=== PATIENT | male | born 1960 | race Caucasian/White ===

== ENCOUNTER 2020-01-29 13:07 | Inpatient (IN) | payer SELFPAY ==
[2020-01-29] VITALS (197 sets, daily range): BP systolic 149–187; BP diastolic 95–106; PULSE 62–87; TEMP 97.7–98.5; O2SAT 89–99
[~2020-01-29] VITALS: Ht 177.8 cm; Wt 88.3 kg
[2020-01-29 13:56] LABS: BASO % 0.3 % (0.0-2.0); EOS # 0.1 (0.0-0.7); EOS % 1.3 % (0-4.0); GRAN # 4.2 (1.4-6.5); GRAN % 65.1 % (42.2-75.2); HEMATOCRIT 43.5 % (42.0-52.0); HEMOGLOBIN 15.6 g/dl (13.5-18.0); LYMPH # 1.4 (1.2-3.4); MEAN CELL VOLUME 99 fl (80.0-100.0); MEAN CORPUSCULAR HEMOGLOBIN 36 pg (27.0-31.0); MEAN CORPUSCULAR HGB CONC 36 g/dl (33.0-37.0); MEAN PLATELET VOLUME 9.6 fl (7.4-10.4); MONO # 0.7 (0.1-0.6); MONO % 10.8 % (1.7-9.3); PLATELET COUNT 185 K/mm3 (130-400); RED BLOOD COUNT 4.39 M/mm3 (4.20-5.60); REDCELL DISTRIBUTION WIDTH-CV 12.2 % (11.5-14.5)
[2020-01-29 14:13] LABS: BILIRUBIN,TOTAL 1.2 mg/dL (0.0-1.0); CALCIUM 9.2 mg/dL (8.4-10.2); CREATININE, serum 0.81 (0.66-1.25); POTASSIUM 3.8 mmol/L (3.4-5.0); TOTAL PROTEIN 7.4 gm/dL (6.4-8.2)
[2020-01-29 14:25] LABS: TROPONIN-I 0.027 ng/mL (0.000-0.035)
[2020-01-29 15:13] LABS: COLLECTION METHOD CLEAN CATCH
[2020-01-29 15:30] LABS: PH 7 (5-8); SQUAMOUS EPITHELIAL None Seen /hpf; URINE APPEARANCE Clear; URINE BACTERIA None Seen /hpf; URINE BILIRUBIN Negative (NEGATIVE); URINE BLOOD Negative (NEGATIVE); URINE COLOR Yellow; URINE GLUCOSE Negative (NEGATIVE); URINE KETONE Negative (NEGATIVE); URINE LEUKOCYTE ESTERASE Negative (NEGATIVE); URINE NITRATE Negative (NEGATIVE); URINE PROTEIN(semi-quant) Negative (NEGATIVE); URINE RBC 0-2 /hpf; URINE UROBILINOGEN Negative (NEGATIVE)
--- NOTE | 2020-01-29 19:15 | NUR ---
RECEIVED REPORT FROM MATEUSZ LUNDBERG. PT LYING IN BED TALKING TO SON AT BEDSIDE. CALL LIGHT WITHIN REACH. URINAL WITHIN REACH.
--- NOTE | 2020-01-29 21:45 | NUR ---
RN HEARD A THUD THEY WENT TO GRAB PT'S MEDS. UPON RETURNING TO ROOM PT FOUND ON KNEES ON FLOOR. PT STATES "I WAS TRYING TO GO TO THE RESTROOM, I NEED TO PEE." URINAL AND CALL LIGHT WERE BOTH IN REACH. RN ASSISTED PT BACK TO BED. FRANK CIGARETTE MAKING MACHINE CATCHER TO BEDSIDE AT THIS TIME FOR ASSESSMENT AND NOTED BLEEDING HEMATOMA UPON RT EYEBRWON ABOUT A HALF INCH LONG, PHYSICIAN STATES DOES NOT NEED ANY OTHER INTERVENTION BESIDES PRESSURE TO STOP THE BLEEDING. RN REMINDS PT THAT HE HAS TO CALL BEFORE GETTING OOB BECAUSE OF ALL OF HIS LINES AND BECAUSE OF HIS CVA TODAY. PT STATES "I THOUGHT I COULD JUST DO IT MYSELF." RN SHOWS PT THAT HIS URINAL AND CALL LIGHT WERE BOTH LYING WITHIN REACH ON BED. PT STATES "OH NOW YOU TELL ME." RADIOLOGY NOTIFIED OF CT HEAD ORDER. PT NOTIFIED OF POC. NO NEURO DEFICITS NOTED. BRUISING TO LEFT KNEE NOTED. WILL MONITOR CLOSELY. NOTIFIED GENERAL ADJUSTER AND REQUEST OF SITTER AT THIS TIME.
[2020-01-30] VITALS (389 sets, daily range): BP systolic 153–203; BP diastolic 69–114; PULSE 54–86; TEMP 97.8–99.2; O2SAT 91–100
--- NOTE | 2020-01-30 06:36 | NUR ---
SPOKE WITH PT AND WENT OVER EDUCATION AGAIN ABOUT NOT GETTING OOB UNLESS HE CALLS FOR HELP WITH CALL LIGHT SYSTEM AND TO WAIT FOR SOMEONE TO ARRIVE. PT VERBALIZED UNDERSTANDING. NO NEURO DEFICITS NOTED. NOTED HEMATOMA FROM FALL ABOVE RT EYEBROW HAS DECREASED THROUGHOUT THE NIGHT. CALL LIGHT AND URINAL WITHIN REACH. BA PLACED. SITTER GONE AT THIS TIME. SPOKE WITH SHWETA MARIE, REQUESTING SON NIXON TO BE UPDATED ON FALL AND PT'S CURRENT STATUS. ATTEMPTED TO CALL NIXON AT THIS TIME BUT UNSUCCESSFUL AND VOICEMAIL WAS NOT SET UP. VSS.
[2020-01-30 06:40] LABS: ALBUMIN 3.5 gm/dL (3.5-5.0); BILIRUBIN,TOTAL 0.8 mg/dL (0.0-1.0); CALCIUM 8.6 mg/dL (8.4-10.2); CHOLESTEROL RISK RATIO 3.3; CREATININE, serum 0.74 (0.66-1.25); POTASSIUM 3.5 mmol/L (3.4-5.0); TOTAL PROTEIN 6.6 gm/dL (6.4-8.2)
[2020-01-30 06:43] LABS: BASO % 0.5 % (0.0-2.0); EOS # 0.1 (0.0-0.7); EOS % 1.2 % (0-4.0); GRAN # 3.6 (1.4-6.5); GRAN % 59.7 % (42.2-75.2); HEMATOCRIT 40.5 % (42.0-52.0); HEMOGLOBIN 14.2 g/dl (13.5-18.0); LYMPH # 1.7 (1.2-3.4); LYMPH % 27.7 % (20.0-51.0); MEAN CELL VOLUME 101 fl (80.0-100.0); MEAN CORPUSCULAR HEMOGLOBIN 35 pg (27.0-31.0); MEAN CORPUSCULAR HGB CONC 35 g/dl (33.0-37.0); MEAN PLATELET VOLUME 10.4 fl (7.4-10.4); MONO # 0.6 (0.1-0.6); MONO % 10.2 % (1.7-9.3); PLATELET COUNT 169 K/mm3 (130-400); RED BLOOD COUNT 4.02 M/mm3 (4.20-5.60); REDCELL DISTRIBUTION WIDTH-CV 12.4 % (11.5-14.5)
[2020-01-30 06:55] LABS: PROTHROMBIN TIME 11.5 SECONDS (9.7-12.8)
--- NOTE | 2020-01-30 07:15 | NUR ---
Bedside report received from Yolanda CHILD and care transfered.
--- NOTE | 2020-01-30 07:47 | NUR ---
ATTEMPTED TO NOTIFY SON NIXON AGAIN, NO ANSWER.
--- NOTE | 2020-01-30 09:15 | NUR ---
Dr Dominguez in to see pt at this time.
--- NOTE | 2020-01-30 09:50 | NUR ---
SW's met with the patient to discuss discharge plan. The patient lives alone in [place]. He states that his son, Robert (ph#[phone]), lives close by. He reports independence with ADLs and does not have any DME. The patient does not have a PCP. He states that his son was thinking about getting him set up with Dr. Shane in [place]. The patient was not on any medications prior to hospitalization and has not needed to utilize any pharmacy. He states that he will probably start using [facility] or [facility]. The patient is self pay. Joann, with [employer], has been notified and plans to contact the patient this afternoon to complete a Medicaid application. The patient does not have advanced directives and was not interested in completing one at this time. He has two children: Robert Cummings and Radha. SW's then addressed the patient's alcohol use. The patient has been drinking a 12 pack of beer and two bourbon drinks a day. The patient reports that he is not really interested in quitting drinking at this time. He states that he may cut back some. He was not interested in any outpatient/inpatient alcohol treatment. The patient's son, Robert, then arrived to the hospital. GENNA followed up with the patient and Robert. Robert reports that they would be interested in completing a DPOA-HC. The patient reports that he would like to designate his son, Robert, to be his DPOA-HC. GENNA and Linsey VAIL, witnessed the patient's signature. The patient was provided with the original and some copies. GENNA placed a copy in the patient's chart. Robert confirmed that they are thinking about getting the patient set up with the PCP, Dr. Shane. He states that they would like to wait until later to set up an appointment with him. Robert states that his works at the [employer] and can make the appointment, if needed. The patient had two strokes. PT/OT/ST have been ordered. SW to continue to follow.
--- NOTE | 2020-01-30 13:25 | NUR ---
Dr Fairbanks in to see pt at this time
--- NOTE | 2020-01-30 19:15 | NUR ---
Report given to Yolanda CHILD and care transfered.
--- NOTE | 2020-01-30 19:50 | NUR ---
REPORT GIVEN TO ANDREINA. TRASNFERRING PT TO 344, ALL PERSONAL BELONGINGS SENT WITH PT.
[2020-01-31] VITALS (12 sets, daily range): BP systolic 150–200; BP diastolic 77–118; PULSE 55–95; TEMP 97.6–98.6
--- NOTE | 2020-01-31 03:32 | NUR ---
Patient arrived from ICU via wheelchair. PRN Labetalol given before arrival per ICU nurse. Patient noted to have a hard time finding words when speaking with this nurse, and talks quickly. No PRN blood pressure medication needed so far this shift. Hand spike driver equal. No noted weakness. Patient has an unsteady gait when up to use the restroom. Small laceration noted to right eyebrow. Noted to be scabbing over. Bruise to left knee noted. Blood glucose levels within normal limits. Patient is alert and oriented. Continues on alcohol detox protocol. Has not scored over a 1 so far this shift. Patient has rested well so far. Patient is a high fall risk and fall precautions are in place. Patient denies any needs. Will continue to monitor.
--- NOTE | 2020-01-31 08:00 | NUR ---
PATIENT IS ORIENTED X3 HOWEVER, HAS A KNOWN ALCOHOL ABUSE ISSUE AND IS IMPULSIVE AT TIMES. PATIENT ASSITED WITH 1-2 ASSIST TO BEDSIDE CHAIR. PATIENT'S GAIT IS VERY UNSTEADY. HIGH RISK FOR FALLS. SMALL, SCABBED LACERATION ABOVE RIGHT EYE FROM FALL IS HEALING WELL. NEURO CHECKS WNL AND PATIENT IS NOT REQUIRING ATIVAN FROM THE DETOX PROTOCOL AT THIS TIME. PATIENT DOES HAVE ELEVATED B/P IN THE 180-190'S SYSTOLIC. ORDERS TO GIVE PRN ANTIHYPERTENSIVE IF OVER 210 SYSTOLIC. PATIENT DENIES FIELDS OR DIZZINESS. NO C/O N/V. RIGHT AC IV TO INT. PT/OT/ST CONSULTED. HEAD TO TOE ASSESSMENT COMPLETE. MECH SOFT BREAKFAST AT BEDSIDE, PATIENT TOLERATED WELL. PATIENT DID CHOKE ON WATER WHEN TAKING AM MEDS. PATIENT COUGHED UP ALL HIS WATER ONTO HIMSELF AND TOOK A FEW MINUTES TO RECOVER. PATIENT DID GET PILLS DOWN. PATIENT MAY REQUIRED MODIFIED/THICKENED LIQUIDS POST CVA. AWAITING ST EVAL
--- NOTE | 2020-01-31 11:00 | NUR ---
PATIENT AMBULATING IN HALLWAY WITH PHYSICAL THERAPY, 2 ASSIST WITH WALKER. GAIT UNSTEADY
--- NOTE | 2020-01-31 11:35 | NUR ---
GENNA met with the patient and the patient's son, Robert to discuss PT/OT recommendations of post acute rehab. GENNA provided Medicare.gov's list of post acute rehab facilities in the [place] area. They chose [facility] and did not want to choose a second choice. GENNA faxed referral. Awaiting response. GENNA collaborated with Joann Light with finance to get the patient to sign the releases of information. Will continue to monitor.
--- NOTE | 2020-01-31 12:20 | NUR ---
AT BEDSIDE DISCUSSING THE PLAN OF CARE WITH THE PATIENT AND SON.
--- NOTE | 2020-01-31 20:00 | NUR ---
Pt up in chair at bedside. Has used the urinal for 450cc of yellow urine. Is alert, oriented to self, not sure where he is. Lungs sound coarse. Takes HS meds one at a time, no choking. Assisted to bed, unsteady after first few steps. Attends on for loose stools. Bed alarm on.
[2020-02-01] VITALS (11 sets, daily range): BP systolic 143–185; BP diastolic 65–109; PULSE 60–90; TEMP 97.4–98.5
--- NOTE | 2020-02-01 02:15 | NUR ---
Medicated with ATivan 0.5mg IVP for detox of 4 on scale. Pt getting interrupted sleep due to detox protocol.
--- NOTE | 2020-02-01 08:00 | NUR ---
PATIENT IS ORIENTED X2 BUT DISPLAYS OCCATIONAL CONFUSION/FORGETFULNESS. PATIENT HAS HX OF ALCOHOL ABUSE AND IS ON THE DETOX PROTOCOL, NO ATIVAN REQUIRED AT THIS TIME. NEURO CHECKS WNL. NOTED ELEVATED B/P IN THE 170'S SYSTOLIC WITH ALL OTHER VSS. TELE INPLACE. PATIENT IS HAVING ISSUES WITH AMBULATION AND SWALLOWING WATER POST CVA. PATIENT REQUIRES 1-2 ASSIST WITH WALKER AND IS UNSTEADY. PATIENT NEEDS VERBAL QUES DURING ADL'S. PATIENT ALSO NEEDS REMINDED EACH TIME TO TAKE SMALL SIPS AND CHIN DOWN WHEN SWALLOWING WATER. PATIENT WILL OCCATIONALLY CHOKE. ST AGREED AND WANTS TO TRY PATIENT ON THICKENED LIQUIDS. PATIENT TOLERATING [facility] SOFT DIET. NO C/O N/V. AM BS WAS 109. HEAD TO TOE ASSESSMENT COMPLETE AND AM MEDS GIVEN WITH SIPS. PATIENT NOW SITTING UP IN BEDSIDE CHAIR WITH ALARM ON AND CALL LIGHT IN REACH.
[2020-02-01 08:21] LABS: BASO # 0.1 (0.0-0.2); BASO % 0.7 % (0.0-2.0); EOS # 0.1 (0.0-0.7); EOS % 1.6 % (0-4.0); GRAN # 4.2 (1.4-6.5); GRAN % 61.6 % (42.2-75.2); HEMATOCRIT 48.4 % (42.0-52.0); LYMPH # 1.6 (1.2-3.4); LYMPH % 23.6 % (20.0-51.0); MEAN CELL VOLUME 100 fl (80.0-100.0); MEAN CORPUSCULAR HEMOGLOBIN 35 pg (27.0-31.0); MEAN CORPUSCULAR HGB CONC 35 g/dl (33.0-37.0); MEAN PLATELET VOLUME 10.2 fl (7.4-10.4); MONO # 0.8 (0.1-0.6); MONO % 12.2 % (1.7-9.3); PLATELET COUNT 203 K/mm3 (130-400); RED BLOOD COUNT 4.82 M/mm3 (4.20-5.60); REDCELL DISTRIBUTION WIDTH-CV 12.1 % (11.5-14.5)
[2020-02-01 08:28] LABS: HEMOGLOBIN 16.9 g/dl (13.5-18.0)
[2020-02-01 08:49] LABS: CALCIUM 9.5 mg/dL (8.4-10.2); CREATININE, serum 0.98 (0.66-1.25); POTASSIUM 4.1 mmol/L (3.4-5.0)
--- NOTE | 2020-02-01 09:37 | NUR ---
GENNA attempted to contact Natasha at [facility], left message. GENNA contacted the patient's son/DPOA-HC to discuss a second choice. He directed GENNA to his , Martha. GENNA contacted Martha about second choice. The second choice is [facility]. GENNA contacted [facility] about the referral. Martha reports they will take the patient home if they cannot find placement. Will continue to monitor.
--- NOTE | 2020-02-01 13:50 | NUR ---
Patient sitting up in recliner
--- NOTE | 2020-02-01 16:11 | NUR ---
Patient up to restroom, x 1 assist with walker. No further needs at this time.
--- NOTE | 2020-02-01 18:17 | NUR ---
Patient has done well this afternoon. Minimal needs. Has been up to restroom with walker and x1 assist. No further needs at this time. Will report off to night club manager.
--- NOTE | 2020-02-01 20:00 | NUR ---
PT IN BED, USES CALL LIGHT APPROPRIATELY BEFORE GETTING UP TO THE BATHROOM. GAIT SLIGHT UNSTEADY, USES WALKER. LESS STOOLS TODAY, VOIDING WELL. IS ALERT, ORIENTED X2. UNSURE OF DATE AND PLACE. HAS SL TO RIGHT AC, INTACT. REMAINS ON DETOX PROTOCOL, SCORING 1-3. NEW B/P MED STARTED TONIGHT. TAKES MEDS CRUSHED IN APPLESAUCE. DENIES NEEDS AT THIS TIME.
--- NOTE | 2020-02-01 23:00 | NUR ---
PT ASKS WHAT THE PLAN IS FOR THE DAY. RE-ORIENTED TO TIME OF DAY AND ENCOURAGED REST.
[2020-02-02] VITALS (9 sets, daily range): BP systolic 154–186; BP diastolic 77–97; PULSE 49–67; TEMP 97.4–98.7
--- NOTE | 2020-02-02 06:00 | NUR ---
Pt denies needs at this time. Detox score 2.
[2020-02-02 06:53] LABS: BASO % 0.5 % (0.0-2.0); EOS # 0.1 (0.0-0.7); EOS % 1.7 % (0-4.0); GRAN # 3.8 (1.4-6.5); GRAN % 57.5 % (42.2-75.2); HEMATOCRIT 44.4 % (42.0-52.0); LYMPH # 1.7 (1.2-3.4); LYMPH % 26.5 % (20.0-51.0); MEAN CELL VOLUME 101 fl (80.0-100.0); MEAN CORPUSCULAR HEMOGLOBIN 36 pg (27.0-31.0); MEAN CORPUSCULAR HGB CONC 36 g/dl (33.0-37.0); MEAN PLATELET VOLUME 10.3 fl (7.4-10.4); MONO # 0.9 (0.1-0.6); MONO % 13.3 % (1.7-9.3); PLATELET COUNT 188 K/mm3 (130-400); RED BLOOD COUNT 4.42 M/mm3 (4.20-5.60); REDCELL DISTRIBUTION WIDTH-CV 12.3 % (11.5-14.5)
[2020-02-02 07:01] LABS: CALCIUM 9.1 mg/dL (8.4-10.2); CREATININE, serum 0.84 (0.66-1.25); POTASSIUM 4.2 mmol/L (3.4-5.0)
--- NOTE | 2020-02-02 08:00 | NUR ---
Patient in bed resting. Alert and oriented x 3 but forgetful. Denies pain at this time. Assessment complete. Denies further needs at this time.
--- NOTE | 2020-02-02 11:32 | NUR ---
Patient up to restroom, x1 assist with walker. Unsteady gait.
--- NOTE | 2020-02-02 12:38 | NUR ---
Contacted Tamara KENT, patient neurochecks unchanged, not requiring insulin and not scoring on detox protocol. Discontinued per orders.
--- NOTE | 2020-02-02 13:07 | NUR ---
GENNA attempted to contact Natasha with [facility], left message. GENNA contacted the patient's [id number], Martha. GENNA informed her that [facility] does not have bed until Wednesday and the Natasha has not returned phone calls. Martha works down the dominguez from Natasha and will have her check her messages. Martha was at lunch and would contact GENNA once she contacts Natasha. Will continue to follow.
--- NOTE | 2020-02-02 13:24 | NUR ---
SW attempted to contact the patient's son to discuss PCP, left message.
--- NOTE | 2020-02-02 13:41 | NUR ---
The patient's son, Robert contacted GENNA about PCP and discharge plan. He states he would like to go ahead and set up Dr. Shane as PCP. Robert will discuss discharge options with his , Sherry then contact GENNA. GENNA contacted Chantal with Dr. Shane's office. In order to set up an appointment for the patient will have to fill out a new patient registration. Chantal faxed forms. GENNA to give the patient's son the forms to fill out. Will continue to follow.
--- NOTE | 2020-02-02 16:28 | NUR ---
Patient up to restoom, with walker and gait belt. Unsteady gait. then up to recliner.
--- NOTE | 2020-02-02 18:03 | NUR ---
Patient has done well throughout the day, has been up to the recliner the majority of the day then back to bed. Forgetful and reeducated on using call light today. Bed/chair alarm on. Denies further needs at this time. Will report off to night stocker.
--- NOTE | 2020-02-02 21:37 | NUR ---
PT IN BED, HAS BEEN IMPULSIVE WITH ACTIVITY AND SETTING OFF BED ALARM WHEN GETTING UP TO BATHROOM. REMINDED PT AGAIN HE NEEDS TO USE THE CALL LIGHT. TAKES HS MEDS CRUSHED IN APPLESAUCE. IS ORIENTED TO SELF. GAIT UNSTEADY WITH WALKER. NO LOOSE STOOLS SO FAR THIS SHIFT.
[2020-02-03 00:12] VITALS: BP 142/74; PULSE 60; TEMP 97.9
--- NOTE | 2020-02-03 02:00 | NUR ---
IMPULSIVE, SETS OFF BED ALARM WHEN GETTING UP TO BATHROOM. VOIDS AND ASSISTED BACK TO BED.
[2020-02-03 04:53] VITALS: BP 145/81; PULSE 61; TEMP 97.8
--- NOTE | 2020-02-03 05:00 | NUR ---
SITTING AT SIDE OF BED, DENIES NEED TO URINATE AT THIS TIME.
--- NOTE | 2020-02-03 08:00 | NUR ---
Patient in bed resting. Alert and oriented x3 but forgetful. Denies pain at this time. Denies further needs at this time.
[2020-02-03 08:16] VITALS: BP 146/84; PULSE 66; TEMP 98
[2020-02-03 11:47] VITALS: BP 148/86; PULSE 52; TEMP 97.8
[2020-02-03 16:34] VITALS: BP 160/85; PULSE 55; TEMP 97.6
--- NOTE | 2020-02-03 18:41 | NUR ---
Patient has done well throughout the day, has sat up in recliner throughout the day. Patient reoriented throughout the day, forgetful. Denies pain throughout the day. Showered this AM with assistance, linnens changed. Denies further needs at this time. Reported off to welder 2nd shift.
[2020-02-03 19:47] VITALS: BP 158/85; PULSE 62; TEMP 98.1
--- NOTE | 2020-02-03 21:00 | NUR ---
Pt remains impulsive with activity, gait unsteady and stumbles with walking to bathroom with walker and staff. Voids and back to bed. Takes HS meds crushed in applesauce. Oriented to self, birthday, but unsure of place and time.
[2020-02-04] VITALS (97 sets, daily range): BP systolic 114–153; BP diastolic 78–96; PULSE 52–93; TEMP 97.5–98.5; O2SAT 90–100
--- NOTE | 2020-02-04 04:13 | NUR ---
Pt impulsive, tries to get up on own. Gait unsteady with walker and gait belt. Speech slow, mumbled at times. Need direction on using the walker each time he is up. Back to bed with bed alarm on.
[2020-02-04 09:16] LABS: BASO # 0.1 (0.0-0.2); BASO % 0.8 % (0.0-2.0); EOS # 0.1 (0.0-0.7); EOS % 1.6 % (0-4.0); GRAN # 3.8 (1.4-6.5); GRAN % 59.2 % (42.2-75.2); HEMATOCRIT 46.1 % (42.0-52.0); HEMOGLOBIN 16.2 g/dl (13.5-18.0); LYMPH # 1.6 (1.2-3.4); LYMPH % 25.5 % (20.0-51.0); MEAN CELL VOLUME 100 fl (80.0-100.0); MEAN CORPUSCULAR HEMOGLOBIN 35 pg (27.0-31.0); MEAN CORPUSCULAR HGB CONC 35 g/dl (33.0-37.0); MEAN PLATELET VOLUME 10.6 fl (7.4-10.4); MONO # 0.8 (0.1-0.6); MONO % 12.4 % (1.7-9.3); PLATELET COUNT 181 K/mm3 (130-400); RED BLOOD COUNT 4.61 M/mm3 (4.20-5.60)
[2020-02-04 09:33] LABS: CALCIUM 9.3 mg/dL (8.4-10.2); CREATININE, serum 0.87 (0.66-1.25); POTASSIUM 4.2 mmol/L (3.4-5.0)
--- NOTE | 2020-02-04 10:58 | NUR ---
Patient up to the bathroom, walker & gaitbelt used, unsteady. needs direction, does not use walker well. He voided. Therapy at bedside, patient speech hard to understand at times. Patient up to chair, assisted with meal. Could not tolerated bananna coughed alot. did do well with oatmeal & applesauce. Could tolerate liquids nector thick, but was given plain water and coughed alot. high fall risk protocol followed.
--- NOTE | 2020-02-04 12:05 | NUR ---
Patient returned to bed one assist with walker & gaitbelt. resting now.
[2020-02-04 13:00] LABS: ARTERIAL BLD GAS O2 SATURATION 95.7 % (92-100); ARTERIAL BLD GAS TCO2 CT 23.5; ARTERIAL BLOOD GAS BASE EXCESS -0.2 (-2-2); ARTERIAL BLOOD GAS HCO3 22.5 meq/L (22-26); ARTERIAL BLOOD GAS PCO2 32.1 mmHg (35-45); ARTERIAL BLOOD GAS PO2 77.1 mmHg (80-100); ARTERIAL BLOOD GAS pH 7.46 (7.35-7.45)
--- NOTE | 2020-02-04 13:04 | NUR ---
Hospitalst team rouned. Concerns for aspiration. Stat orders obtained. Patient not vocalizing when questions answered. Will await test results.
--- NOTE | 2020-02-04 14:18 | NUR ---
Stat head CT completed. Transferred phone call to . Patient sleeping in bed, snooring noted.
--- NOTE | 2020-02-04 15:30 | NUR ---
Patient taken to stat CT via bed. Then taken to room ICU 2. Patient transferred to bed. Patient was not given PO plavix per , awaiting Cta results per [facility] recomentations. Sylvia Charge nurse to resume cares.
--- NOTE | 2020-02-04 15:31 | NUR ---
Pt brought to ICU post CTA and scooted self over to bed. Placed on monitor and assessment complete. Currently waiting on CTA results. Will continue to follow.
--- NOTE | 2020-02-04 17:45 | NUR ---
Talked with Dr Patterson regarding recent SBP of 170-190. Stated would not treat at this time unless greater tehn 220. Passed this on to flight crew with report.
--- NOTE | 2020-02-04 18:08 | NUR ---
Pt taken out to [facility] for transfer to . Transfer team updated as well as pt's son Robert.
--- NOTE | 2020-02-06 12:01 | NUR ---
The patient was transferred to [facility] on 02/03.
== END 2020-02-04 18:00 | disposition other institution, planned readmission (95) | DRG 65 ==
LOC: COL.ER 13:07 → ICU 15:30 → MEDICAL 01-30 20:08 → SURG 01-30 20:21 → ICU 02-04 15:05
PROVIDERS: Physician Assistant; Student in an Organized Health Care Education/Training Program; ADMIT Internal Medicine
DX: I63.212 Cerebral infarction due to unspecified occlusion or stenosis of left vertebral artery (principal); E87.1 Hypo-osmolality and hyponatremia; I16.1 Hypertensive emergency; R27.0 Ataxia, unspecified; R13.10 Dysphagia, unspecified; I10 Essential (primary) hypertension; S00.83XA Contusion of other part of head, initial encounter; F10.10 Alcohol abuse, uncomplicated; F17.210 Nicotine dependence, cigarettes, uncomplicated; W18.30XA Fall on same level, unspecified, initial encounter
CPT/HCPCS: 99223-AI; 99231-AI; 99232-AI; 99233-AI; A9585; J1650; J2060; J3480; J7030; J7050; Q9967